=== PATIENT | male | born 1955 | race Caucasian/White ===

== ENCOUNTER 2023-10-26 06:51 | Day surgery (SDC) | payer MEDICARE, OTHER ==
[2023-10-26] MEDS: Sodium Chloride 0.9% 1,000 ML IV SCH (07:59)
[2023-10-26] MEDS ORDERED: Midazolam 1 MG/ML 2 ML SDV ONE (08:09)
[2023-10-26] MEDS ORDERED: fentaNYL 50 MCG/ML SDV ONE (08:09)
[2023-10-26] MEDS ORDERED: Propofol 200 MG/20 ML SDV ONE ×2 (08:09→08:24)
== END 2023-10-26 10:40 | disposition home or self-care (01) ==
LOC: JP.SDS 06:51
PROVIDERS: ATTEND Surgery
DX: Z12.11 Encounter for screening for malignant neoplasm of colon (principal); K21.9 Gastro-esophageal reflux disease without esophagitis; R10.13 Epigastric pain
CPT/HCPCS: 43239; 45378; 88305; J2250; J2704; J3010; J7030